=== PATIENT | female | born 1980 | race Caucasian/White ===

== ENCOUNTER 2018-07-20 08:42 | Day surgery (SDC) | payer OTHER ==
--- OUTSIDE RECORDS SUMMARY | 2018-07-20 08:45 | XMS REPORT ---
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
--- OUTSIDE RECORDS SUMMARY | 2018-07-20 08:45 | XMS REPORT ---
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 29476383117 1 MG Orally June Active 1 tablet Twice a day PRN [address] [facility] 45078594671 300 MG Orally Active 1 tablet Once a day in the morning Klonopin [facility] 96841303727 2 MG Orally Active 1 tablet Once a day Vyvanse [facility] 83979750049 60 MG Orally Active 1 capsule Once a day in the morning Vitamin D [facility] [address]-06 400 UNIT Orally Active 2 capsules Once a day Trintellix [facility] 91582518211 20 MG Orally Active 1 tablet Once a day Duexis [facility] 94346075257 800-26.6 MG JuneAugust 12, Active 1 tablet Orally Three 2018 times a day Results No Known Results Summary Purpose eClinicalWorks Submission
--- OUTSIDE RECORDS SUMMARY | 2018-07-20 08:45 | XMS REPORT ---
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), predominantly inattentive type Assessment Depression with anxiety F41.8 Active Assessment Mixed hyperlipidemia E78.2 Active Assessment Fatigue, unspecified type R53.83 Active Assessment Adult BMI 26.0-26.9 kg/sq m Z68.26 Active Assessment Vitamin D deficiency E55.9 Active Assessment HTN, goal below 140/90 I10 Active Problem Depression with anxiety F41.8 Active Problem Mixed hyperlipidemia E78.2 Active Problem Vitamin D deficiency E55.9 Active Assessment Generalized hyperhidrosis R61 Active Problem 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), predominantly inattentive type Problem HTN, goal below 140/90 I10 Active Medications Medication Code Code Instructions Start End Status Dosage System Date Date Klonopin [facility] 35355424553 2 MG Orally Active 1 tablet Once a day Vyvanse [facility] 31956983315 60 MG Orally Active 1 capsule Once a day in the morning Trintellix [facility] 70254207350 20 MG Orally Active 1 tablet Once a day Wellbutrin XL [facility] 64047920449 300 MG Orally Active 1 tablet Once a day in the morning Vitamin D [facility] [address]-25 400 UNIT Orally Active 2 capsules Once a day Glycopyrrolate [facility] 85193193367 1 MG Orally June Active 1 tablet Twice a day PRN 2018 Results No Known Results Summary Purpose eClinicalWorks Submission
--- OUTSIDE RECORDS SUMMARY | 2018-07-20 08:46 | XMS REPORT ---
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
--- OUTSIDE RECORDS SUMMARY | 2018-07-20 08:46 | XMS REPORT ---
:1980 Author Organization [employer]Works Care Team Providers Name Role Phone Abundio [facility] Provider Role Unavailable Allergies No Known [...]
[2018-07-23 10:54] LABS: Urine 24HR Volume Metan 2400 mL
[2018-07-23 14:30] LABS: 24 HR VOLUME 2400 mL/24 h; Epinephrine Level REPORT
[2018-07-23 17:39] LABS: Ur Total Volume (Vanillylmande 2400 mL/24 h
== END 2018-07-20 09:27 | disposition home or self-care (01) ==
LOC: DS 08:42
PROVIDERS: ATTEND Family Medicine
DX: Z79.899 Other long term (current) drug therapy (principal); R89.9 Unspecified abnormal finding in specimens from other organs, systems and tissues
CPT/HCPCS: 82384; 82570; 83835; 84585